=== PATIENT | female | born 1975 | race Caucasian/White ===

== ENCOUNTER 2020-01-12 11:46 | Outpatient (CLI) | payer OTHER, SELFPAY ==
--- NOTE | ~2020-01-12 | MM_ITS ---
EXAMINATION: MM diagnostic delma LT w eric HISTORY: Six-month follow-up for probably benign left breast masses TECHNIQUE: Craniocaudal, mediolateral, and mediolateral oblique 3-D tomosynthesis images of the left breast were performed and synthetic 2-D images were generated. And spot compression views are also ob tained. CAD analysis was submitted and interpreted. COMPARISON: 06/29/2019, 06/23/2019, 05/27/2018, 05/19/2017 BREAST PARENCHYMAL COMPOSITION: There are scattered areas of fibroglandular density. FINDINGS: There is a stable 5 mm mass in the middle third of the slightly lower, slightly outer breas t at the 4:00 location 7 cm from the nipple. No suspicious calcification or architectural distortion are identified. There has been no suspicious interval change. Sonographically detected masses on the 06/29/2019 comparison or similar appearance, most consistent with multiple simple and complicated cyst s. IMPRESSION: 1. Stable, probably benign left breast mass. 2. Recommend 6 month follow-up left diagnostic mammogram with possible ultrasound BI-RADS category 3, probably benign findings. Reviewed, dictated and finalized at location A. IMPRESSION: 1. Stable, probably benign left breast mass. 2. Recommend 6 month follow-up left diagnostic mammogram with possible ultrasou nd BI-RADS category 3, probably benign findings.
== END 2020-01-12 11:47 | disposition home or self-care (01) ==
LOC: ANHIMG 11:48
PROVIDERS: PCP Family Medicine; Visit Provider Obstetrics & Gynecology
DX: R92.8 Other abnormal and inconclusive findings on diagnostic imaging of breast (principal)
CPT/HCPCS: 77061; 77065; G0279

== ENCOUNTER 2020-04-16 09:46 | Day surgery (SDC) | payer OTHER, SELFPAY ==
[2020-04-16] VITALS (11 sets, daily range): BP systolic 99–134; BP diastolic 50–94; PULSE 57–101; RESP 11–20; TEMP 36.3–37; O2SAT 96–100
--- NOTE | ~2020-04-16 | US_ITS ---
EXAMINATION: US right upper quadrant EXAM DATE: 04/16/2020 11:04 INDICATION: Right upper quadrant pain. TECHNIQUE: Multiple grayscale and Doppler images of the abdomen right upper quadrant were obtained (kareen y a technologist who performed the scan) and subsequently reviewed. There is no prior study for narendra hightower. FINDINGS: The pancreatic head and body are normal in appearance. The pancreatic tail is not visualized. The l iver has normal echogenicity and contour. There are no focal liver lesions identified. There is no evidence of intrahepatic biliary duct dilation. Portal venous flow was seen in the hepatopedal, nor mal direction and has normal Doppler waveform. No right-sided hydronephrosis. Common bile duct measures 6 mm, which is normal. There are multiple small gallstones identified in th e fundus and also a stone in the gallbladder neck. Gallbladder is moderately distended with regions t hat are mildly thickened. Additionally, a sonographic Bergeron's sign was demonstrated. Common bile kasi t measures 6 mm which is upper limits of normal. No pericholecystic fluid. IMPRESSION: Findings suspicious for acute cholecystitis. Please clinically correlate. Reviewed, dictated and finalized at location A. IMPRESSION: Findings suspicious for acute cholecystitis. Please clinically germaine elate.
--- NOTE | 2020-04-16 10:02 | ECG_ITS ---
Measurements Intervals [place] Rate: 75 P: 78 NC: 154 QRS: 60 QRSD: 88 T: 46 QT: 371 QTc: 415 Interpretive Statements SINUS RHYTHM POSSIBLE LEFT ATRIAL ENLARGEMENT BORDERLINE ST ABNORMALITY- INF/LAT LEADS BORDERLINE ECG Electronically Signed On 04-16-2020 11:43:07 CDT by Adam Fernandez D.O.
--- NOTE | 2020-04-16 10:02 | ED.ABDPAIN ---
HPI - Abdominal Pain General Chief Complaint: Abdominal Pain Stated Complaint: abd pain Time Seen by Provider: 04/16/20 09:50 Source: patient Mode of arrival: ambulatory History of Present Illness HPI narrative: This patient is a 44 year old female who presents for evaluation of possible gallbladder problem. She developed upper abdominal pain /pressure Thursday after eating a hamburger. She had nausea and vomiting at the time of this pain and she reports she felt better. She has continued to have intermittent gas pressure pain since Thursday. This pain is worse with standing. She denies fever, chills , cough or chest pain. MD elicited complaint: abdominal pain Onset (ago): day(s) (3) Pain Consistency: intermittent Location: RUQ Related Data Allergies Allergy/AdvReac Type Severity Reaction Status Date / Time erythromycin base Allergy Intermediate Rash Unverified 09/17/12 19:23 penicillin G AdvReac Mild Causes Verified 09/17/12 19:23 yeast infections Penicillins AdvReac YEAST Unverified 04/16/20 14:29 INFECTION MACROLIDES Allergy Mild Uncoded 01/10/09 13:01 Review of Systems Review of Systems: All systems reviewed & are unremarkable except as noted in HPI and below Constitutional: Constitutional: Denies chills and Denies fever(s) Cardiovascular: Cardiovascular: Denies chest pain Respiratory: Respiratory: Denies cough and Denies dyspnea Gastrointestinal: Gastrointestinal: Reports abdominal pain, Reports nausea and Reports vomiting Genitourinary: Genitourinary: Reports no additional female genitourinary complaints Musculoskeletal: Musculoskeletal: Reports back pain PMFSH Past Medical History Medical History (Updated 04/16/20 @ 18:22 by Soheila Tyson MD) No significant past medical history Surgical History Surgical History (Updated 04/16/20 @ 17:33 by Riddhi Alcocer) History of section History of left salpingo-oophorectomy Laparoscopic left salpingo-oophorectomy due to ovarian cyst about 11-12 years ago. Family History Family History (Updated 08/06/18 @ 14:24 by DOCTOR UNKNOWN) Father Hypertension Mother Hypertension Other Family history of attention deficit hyperactivity disorder (ADHD) Social History Social History Social History: Patient lives at home with her son. She works at [employer]. Wishes to be a full code. Designates her mother, Moira Rios, as her medical decision maker. Smoking packs per day: 1 Smoking cigarettes per day: 20.0 Years smoked: 10 Smoking pack-years: 10.00 Smoking status: Current every day smoker Tobacco type: cigarettes Alcohol intake: never Substance use: never Living arrangements: with family Additional living arrangements comments: Lives with one of her sons. Occupation/Education: occupation Additional occupation/education comments: Works at [employer]. Gender identity (if verbalized by the patient): Female Exam Narrative: Exam Narrative: GENERAL: Well-appearing, well-nourished, and in no acute distress. HEAD: Normocephalic, atraumatic EYES: PERRLA and EOMI, conjunctiva clear without discharge THROAT:Mucous membranes moist, NECK: Supple, without lymphadenopathy or mass RESPIRATORY: No respiratory distress, Airway patent, Respirations non-labored, Clear to auscultation without rales, rhonchi or wheeze HEART: Regular rate and rhythm. No murmur heard. Normal peripheral pulses. ABDOMEN: Soft, RUQ, epigastric tenderness, nondistended, normal active bowel sounds. No masses. No rebound or guarding, No organomegaly. EXTREMITIES: No edema, normal strength with full range of motion. SKIN: Warm, dry, normal color without rash NEURO: Alert and oriented x3. CN 2-12 grossly intact. No focal deficits. PSYCH: Normal mood and affect. Course Consultations Consultation #1: Dr. De Leon states he will try to take patient to OR today. She should remain NPO Date: 04/16/20
--- NOTE | 2020-04-16 10:10 | PC.NURSE ---
pt taken to ultrasound at this time, unable to obtain EKG prior to depature, will obtain upon return.
[2020-04-16 10:20] LABS: Basophils Percent Auto 0.3 % (0.2-1.2); Eosinophils Absolute Auto 0.1 K/mm3 (0-0.3); Eosinophils Percent Auto 0.8 % (0-4.4); Hematocrit 41.1 % (37.0-47.0); Hemoglobin 13.7 g/dL (12.0-15.0); Immature Granulocyte Absolute 0.05 K/mm3 (0.00-0.031); Immature Granulocyte Percent A 0.5 % (0-0.5); Lymphocytes Absolute Auto 2.38 K/mm3 (0.9-3.2); Lymphocytes Percent Auto 22.4 % (18.3-44.2); Mean Corpuscular HGB Conc 33.3 g/dl (32-36); Mean Corpuscular Hemoglobin 29.8 pg (26-34); Mean Corpuscular Volume 89.3 fl (80-100); Mean Platelet Volume 10.3 fl (7.4-10.4); Monocytes Absolute Auto 0.7 K/mm3 (0.1-0.6); Neutrophils Absolute Auto 7.3 K/mm3 (1.3-6.7); Platelet Count Result 322 k/mm3 (150-375); Red Cell Distribution Width 13.1 % (11.5-14.5); White Blood Count 10.6 K/mm3 (4.5-10.0)
[2020-04-16 10:27] LABS: Add Urine Microscopic? YES; Appearance Urine Clear (Clear); Bacteria Urine Trace /hpf; Bilirubin Urine Negative (Negative); Blood Urine 1+ (Negative); Color Urine Straw (Yellow); Glucose Urine UA Negative (Negative); Ketones Urine 1+ mg/dL (Negative); Leukocyte Esterase Ur Trace LEU/UL (Negative); Mucus Urine Rare /lpf; Nitrate Urine Negative (Negative); Protein Urine Negative (Negative); RBC Urine 0-2 /hpf (0-2); Specific Grav Ur 1.005 (1.001-1.035); Squamous Epithelial Cell Urine Few /hpf (Few); Urobilinogen Urine Negative mg/dL (<2.0); WBC Urine 0-3 /hpf
[2020-04-16 10:31] LABS: Alanine Aminotransferase 12 U/L (4-35); Albumin Level 4.4 g/dL (3.5-5.1); Alkaline Phosphatase 73 U/L (38-126); Aspartate Amino Transferase 16 U/L (14-36); Bilirubin,Total 0.4 mg/dL (0.2-1.3); Blood Urea Nitrogen 7 mg/dL (7-17); Calcium 9.3 mg/dL (8.4-10.2); Carbon Dioxide 25 mmol/L (22-30); Chloride 102 mmol/L (98-107); Estimated CRCL calculation 127 ml/min; Estimated Glomerular Filt Rate > 60; Glucose 102 mg/dL (65-105); Lipase 20 U/L (23-300); Potassium 3.3 mmol/L (3.4-5.0); Sodium 138 mmol/L (137-145)
--- NOTE | 2020-04-16 10:31 | PC.NURSE ---
PT STILL IN ULTRASOUND, WILL OBTAIN EKG UPON RETURN.
--- NOTE | 2020-04-16 10:46 | PC.NURSE ---
PT STILL IN ULTRASOUND, WILL OBTAIN EKG UPON RETURN AND MEDICATE PER PROVIDER ORDER.
--- NOTE | 2020-04-16 11:08 | PC.NURSE ---
PT HAS RETURNED FROM ULTRASOUND AT THIS TIME.
[2020-04-16] MEDS: LACTATED RINGERS 1,000 ML 999 ML IV CONT (11:12)
[2020-04-16] MEDS: PANTOPRAZOLE SODIUM IV 40 MG VIAL IV PUSH (11:12)
--- NOTE | 2020-04-16 11:18 | PC.NURSE ---
PT REFUSING ZOFRAN ON THE BASIS THAT SHE IS NOT NAUSEATED AT THIS TIME AND IT MAKES HER VERY SLEEPY AND SHE HAS TO DRIVE HOME.
--- NOTE | 2020-04-16 12:49 | WPDANESEPPF ---
Anes - Initial Pre Proc Eval Procedure: Operation Date: 04/16/20 16:30 Proposed Procedures p Laparoscopic Cholecystectomy,Possible Open - Dakotah Sevilla DO Date/Time: 04/16/20 12:49 Pre Op Diagnosis: acute calculous cholecystitis Patient Data Age: 44 Gender: F Height: 1.65 m Weight: 80.7 kg Last Vital Signs Temp 36.6 C 04/16/20 10:00 Pulse 57 L 04/16/20 11:40 Resp 18 04/16/20 11:40 BP 118/63 04/16/20 11:40 Pulse Ox 100 04/16/20 11:40 Allergies Allergy/AdvReac Type Severity Reaction Status Date / Time erythromycin base Allergy Intermediate Rash Unverified 09/17/12 19:23 penicillin G AdvReac Mild Causes Verified 09/17/12 19:23 yeast infections Penicillins AdvReac YEAST Unverified 04/16/20 14:29 INFECTION MACROLIDES Allergy Mild Uncoded 01/10/09 13:01 Home Medications Medication Instructions Recorded Confirmed Type hydrocodone-acetaminophen [[place]] 1 tablet PO Q4H PRN #10 tablet 04/16/20 Rx Laboratory Tests 04/16/20 04/16/20 04/16/20 10:10 10:10 10:11 WBC 10.6 K/mm3 H K/mm3 (4.5-10.0) RBC 4.60 M/mm3 M/mm3 (4.2-5.4) Hgb 13.7 g/dL g/dL (12.0-15.0) Hct 41.1 % % (37.0-47.0) MCV 89.3 fl fl (80-100) MCH 29.8 pg pg (26-34) MCHC 33.3 g/dl g/dl (32-36) RDW 13.1 % % (11.5-14.5) Plt Count 322 k/mm3 k/mm3 (150-375) MPV 10.3 fl fl (7.4-10.4) Immature Gran % (Auto) 0.5 % % (0-0.5) Neut % (Auto) 69.0 % % (45.5-73.1) Lymph % (Auto) 22.4 % % (18.3-44.2) [place] % (Auto) 7.0 % % (2.6-8.5) Eos % (Auto) 0.8 % % (0-4.4) Baso % (Auto) 0.3 % % (0.2-1.2) Lymph # (Auto) 2.38 K/mm3 K/mm3 (0.9-3.2) [place] # (Auto) 0.7 K/mm3 H K/mm3 (0.1-0.6) Eos # (Auto) 0.1 K/mm3 K/mm3 (0-0.3) Baso # (Auto) 0.0 K/mm3 K/mm3 (0.0-0.1) Abs Immat Gran (auto) 0.05 K/mm3 H K/mm3 (0.00-0.031) Absolute Neuts (auto) 7.3 K/mm3 H K/mm3 (1.3-6.7) Absolute Nucleated RBC 0.0 K/mm3 K/mm3 (0.0-0.012) Nucleated RBC % 0.0 % % (0.0-0.2) Sodium 138 mmol/L mmol/L (137-145) Potassium 3.3 mmol/L L mmol/L (3.4-5.0) Chloride 102 mmol/L mmol/L (98-107) Carbon Dioxide 25 mmol/L mmol/L (22-30) BUN 7 mg/dL mg/dL (7-17) Creatinine 0.50 mg/dL L mg/dL (0.7-1.0) Estim Creat Clear Calc 127 ml/min ml/min Estimated GFR > 60 (59 - ) Glucose 102 mg/dL mg/dL (65-105) Calcium 9.3 mg/dL mg/dL (8.4-10.2) Total Bilirubin 0.4 mg/dL mg/dL (0.2-1.3) AST 16 U/L U/L (14-36) ALT 12 U/L U/L (4-35) Alkaline Phosphatase 73 U/L U/L (38-126) Total Protein 7.0 g/dL g/dL (6.3-8.2) Albumin 4.4 g/dL g/dL (3.5-5.1) Lipase 20 U/L L U/L (23-300) Urine Color Straw (Yellow) Urine Appearance Clear (Clear) Urine pH 8.0 (5.0-9.0) Ur Specific [place] 1.005 (1.001-1.035) Urine Protein Negative mg/dL mg/dL (Negative) Urine Glucose (UA) Negative mg/dL mg/dL (Negative) Urine Ketones 1+ mg/dL H mg/dL (Negative) Ur Blood (Man) 1+ H (Negative) Urine Nitrate Negative (Negative) Urine Bilirubin Negative (Negative) Urine Urobilinogen Negative mg/dL mg/dL (<2.0) Leukocyte Esterase Rfl Trace SANTO/UL H SANTO/UL (Negative) Urine RBC 0-2 /hpf /hpf (0-2) Urine WBC 0-3 /hpf /hpf Ur Squamous Epith Cells Few /hpf /hpf (Few) Urine Bacteria Trace /hpf /hpf Urine Mucus Rare /lpf /lpf Other Studies: Upper Quadrant Ultrasound 04/16/20 11:06 IMPRESSION: Findings suspicious for acute cholecystitis. Please clinica
--- NOTE | 2020-04-16 12:58 | PM.IMHP ---
H&P: HPI History of Present Illness Chief complaint: abd pain Narrative: Neisha Black is a 44 year old female with no known past medical history, who presented to the emergency department with complaints of epigastric abdominal pain. The patient reports 1st noticing symptoms about 2-3 hours after eating a cheeseburger from [employer] 2 days ago. Initially, she thought this was related to indigestion and had taken multiple pgzs-zle-sukykeg medications to relieve her symptoms. She reportedly took Maalox and Gas-X without relief. She reports initially it was a mild pressure type of pain in the epigastric area. That night she vomited once and felt that this relieved her abdominal pain. Through the next day, the abdominal pain returned and continued to worsen. She reportedly did not eat anything but crackers yesterday and states her abdominal pain became severe. The pain would come in waves. Due to the persistent pain, the patient presented to the emergency department for further evaluation. Right upper quadrant ultrasound showed findings suspicious for acute cholecystitis, with multiple small gallstones identified in the fundus and also a stone in the gallbladder neck with moderate gallbladder distention and areas of mild wall thickness. Labs revealed white blood cell count of 10,600, normal LFTs, and normal lipase. The ED physician contacted our service and the patient is now being seen in the emergency department for evaluation for acute cholecystitis. She reports that her abdominal pain is improved since being in the ER after receiving pain medication, but has had two episodes of severe abdominal pain that came in waves since she has been there. Denies any current nausea or bloating. Denies having this pain in the past. Recently constipated with no bowel movement in the past 2-3 days. No other complaints at this time. Also to note, the patient was tested for SARS CoV-2 due to work on 02/28/2020 and tested positive. She was reportedly quarantine for 10 days and was having symptoms of loss of taste and smell. No longer experiencing any symptoms and back to work. Review of Systems Constitutional: Constitutional: Reports no additional constitutional complaints, Denies chills, Denies excessive sweating, Denies fatigue, Denies fever(s), Denies headache(s) and Denies weakness Eyes: Eyes: Denies change in vision and Denies loss of vision ENT: Reports Normal hearing present, Denies dizziness and Denies headache(s) Cardiovascular: Cardiovascular: Denies chest pain, Denies syncope, Denies leg edema, Denies lightheadedness, Denies radiating jaw, neck or arm pain and Denies dyspnea Respiratory: Respiratory: Denies cough, Denies dyspnea and Denies wheezing Gastrointestinal: Gastrointestinal: Reports as per HPI, Reports abdominal pain (epigastric), Denies bloating, Denies hematochezia, Denies tenesmus, Reports constipation, Denies diarrhea, Denies nausea, Reports vomiting and Denies hematemesis Genitourinary: Genitourinary: Reports no additional female genitourinary complaints, Denies hematuria and Denies dysuria Musculoskeletal: Musculoskeletal: Denies deformity, Denies joint swelling, Denies radiating pain into limb and Denies tingling Integumentary/Breasts: Skin/Breast: Denies pruritus, Denies wounds and Denies jaundice Neurologic: Reports Normal hearing present, Denies confusion, Denies dizziness, Denies syncope, Denies headache(s), Denies loss of vision, Denies tingling, Denies tremor(s) and Denies weakness Psychiatric: Psychiatric: Denies anxiety, Denies confusion and Denies depression Endocrine: Endocrine: Denies cold intolerance, Denies excessive sweating, Denies fatigue and Denies heat intolerance Allergic/Immunologic: Allergic/Immunologic: Denies wheezing PMFSH Past Medical History Medical History No significant past medical history Surgical History Surgical History (Reviewed
--- NOTE | 2020-04-16 13:13 | PC.NURSE ---
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
[2020-04-16] MEDS: LACTATED RINGERS 1,000 ML 30 ML IV CONT ×2 (14:15→16:10)
[2020-04-16] MEDS: KETOROLAC 15 MG/ML VIAL (*BKC) IV PUSH ×2 (14:40→16:49)
[2020-04-16] MEDS: ceFAZolin 2 GM/D5W 50 ML 2 GM/50 ML BAG IVPB (15:07)
[2020-04-16] MEDS: BUPIVACAINE/EPINEPHRINE 0.5% 30 ML VIAL INFILTRATE (15:55)
--- NOTE | 2020-04-16 16:09 | PM.PROC ---
Procedure Note - Detailed Date of procedure: 04/16/20 Pre-op diagnosis: acute calculous cholecystitis Post-op diagnosis: same (Acute calculous cholecystitis with gallbladder hydrops) Procedure performed: Laparoscopic Cholecystectomy Description of procedure: Procedure as well as risks, benefits, and alternatives were discussed with patient. Written consent was obtained and placed in chart prior to procedure. The patient was brought back to surgical suite. Patient was placed in supine position on operating table. Time-out was done to confirm patient and procedure. Patient was then intubated by the anesthesia department. Abdomen was prepped and draped in sterile fashion using chlorhexidine prep. 0.5% bupivacaine with epinephrine was infiltrated at each site of incision. A 5 millimeter incision was made near the umbilicus, and a 5 millimeter Optiview trocar was advanced through the abdominal layers under direct visualization. Once inside the abdominal cavity, carbon dioxide was insufflated to create a pneumoperitoneum. The camera was inserted and the abdomen was inspected. No immediate abnormalities were identified. The patient was placed in reverse Trendelenburg position and rotated slightly to the left. An 11 millimeter incision was made in the subxiphoid region, and an 11 millimeter trocar was inserted under direct visualization. Two 5 millimeter incisions were made in the right upper quadrant, and two 5 millimeter trocars were inserted under direct visualization. The gallbladder was identified and grasped at the fundus and retracted superiorly. It was then grasped at the infundibulum retracted laterally. Careful dissection around the neck of the gallbladder was performed using blunt dissection with a [place] grasper and hook electrocautery. The cystic duct was identified, and a window was created behind it. The cystic artery was also identified and a window was created behind it. The critical view of safety was identified, visualizing the cystic duct running directly into the neck of the gallbladder, and the cystic artery running directly into the wall of the gallbladder. A 5 millimeter clip safety director was then used to place 2 clips proximally and 1 clip distally on both the cystic duct and cystic artery. They were then both transected using endoscopic scissors. Once safely away from the lavelle hepatitis, the gallbladder was dissected free from the liver bed using hook electrocautery. Hemostasis was achieved along the way. The gallbladder was removed completely and then removed through the subxiphoid port. The liver bed was then inspected. Hemostasis appeared adequate, and our clips appeared secure. The area was gently irrigated with sterile saline. No other abnormalities were seen. The patient was flattened out in bed, and 1 final inspection was made around the abdominal cavity. The ports were then removed under direct visualization, the camera was removed, and the pneumoperitoneum was released. The fascia of the subxiphoid port was approximated using an 0 Vicryl [id number] suture. The skin of the incisions was approximated using 4-0 Monocryl subcuticular sutures. Exofin glue was applied on top. The patient was then awakened from anesthesia, extubated, and transferred to recovery. Anesthesia: GETA and local (0.5% bupivicaine with epi) Surgeon: Dakotah Sevilla DO Estimated blood loss (mL): 20 Drains: No Packing: No Pathology: yes Complications: No immediate complications Condition: stable (Patient tolerated procedure well, and is currently resting comfortably in recovery.) Disposition: same day Findings: This is a 44-year-old woman who presented to the emergency department today with complaints of right upper quadrant abdominal pain for the past 2 days. She states that the pain started shortly after eating a cheeseburger. She has never experienced pains like this in the past. Pain was continued to worsen and therefore she decided to p
--- NOTE | 2020-04-16 17:14 | SUR.PHASEI ---
[id number] - dr. mcgee at bedside
== END 2020-04-16 18:09 | disposition home or self-care (01) ==
LOC: ANHED 12:00 → ANHSURGERY 13:18
PROVIDERS: Emergency Provider General Practice; PCP Family Medicine; Visit Provider Surgery
PROC: 0FT44ZZ Resection of Gallbladder, Percutaneous Endoscopic Approach (ICD-10-PCS; CPT 47562; principal; 2020-04-16 16:30)
DX: K80.10 Calculus of gallbladder with chronic cholecystitis without obstruction (principal); F17.210 Nicotine dependence, cigarettes, uncomplicated
CPT/HCPCS: 47562; 36415; 76705; 80053; 81001; 81025; 83690; 85025; 86850; 86900; 86901; 88304; 93005; 96361; 96365; 96375; 99285; C9113; J0131; J0330; J0690; J1100; J1885; J2250; J2405; J2704; J2710; J3010; J7120

== ENCOUNTER 2020-08-07 11:43 | Outpatient (CLI) | payer OTHER, SELFPAY ==
--- NOTE | ~2020-08-07 | MM_ITS ---
EXAMINATION: MM diagnostic [place]ma LT w eric HISTORY: Six-month follow-up for probably benign left breast mass TECHNIQUE: Craniocaudal, mediolateral, and mediolateral oblique 3-D tomosynthesis images of the left breast were performed and synthetic 2-D images were generated. Spot compression views are also obtain ed. CAD analysis was submitted and interpreted. COMPARISON: 01/12/2020, 06/29/2019, 06/23/2019, 05/27/2018 BREAST PARENCHYMAL COMPOSITION: There are scattered areas of fibroglandular density. FINDINGS: Again seen is a stable 5 mm mass in the middle third of the slightly lower, slightly outer breast at the 4:00 location 7 cm from the nipple. No suspicious calcification or architectural distor tion are identified. IMPRESSION: 1. Stable, probably benign left breast mass. 2. Given one year of interval stability, recommend 12 month followup left diagnostic mammogram with p ossible ultrasound is recommended. BI-RADS category 3, probably benign findings. Reviewed, dictated and finalized at location A. 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 Stable, probably benign left breast mass. 2. Given one year of interval stability, recommend 12 month followup left diagn ostic mammogram with possible ultrasound is recommended. BI-RADS category 3, probably benign findings.
== END 2020-08-07 11:44 | disposition home or self-care (01) ==
LOC: ANHIMG 11:47
PROVIDERS: PCP Family Medicine; Visit Provider Obstetrics & Gynecology
DX: R92.8 Other abnormal and inconclusive findings on diagnostic imaging of breast (principal)
CPT/HCPCS: 77061; 77065; G0279

== ENCOUNTER 2020-08-14 15:47 | Outpatient (CLI) | payer OTHER, SELFPAY ==
--- NOTE | ~2020-08-14 | MM_ITS ---
EXAMINATION: MM screening delma RT w eric HISTORY: Screening right mammogram, recent left diagnostic mammogram TECHNIQUE: Craniocaudal and mediolateral oblique 3-D tomosynthesis images were obtained and synthetic 2-D images were generated. CAD analysis was submitted and interpreted. COMPARISON: 06/23/2019, 05/27/2018, 05/19/2017 BREAST PARENCHYMAL COMPOSITION: There are scattered areas of fibroglandular density. FINDINGS: A stable asymmetry is seen in the outer breast on the craniocaudal view. There is no eviden ce of suspicious mass, calcification, or architectural distortion to suggest malignancy in either yomaira ast. There has been no suspicious interval change. IMPRESSION: 1. No mammographic evidence of malignancy. 2. Recommend routine screening mammography in one year. BI-RADS Category 2: Benign finding(s). Reviewed, dictated and finalized at location A. 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
== END 2020-08-14 15:48 | disposition home or self-care (01) ==
LOC: ANHIMG 15:48
PROVIDERS: PCP Family Medicine; Visit Provider Obstetrics & Gynecology
DX: Z12.31 Encounter for screening mammogram for malignant neoplasm of breast (principal)
CPT/HCPCS: 77063; 77067

== ENCOUNTER 2022-02-17 15:08 | Outpatient (CLI) | payer OTHER, SELFPAY ==
--- NOTE | ~2022-02-17 | MM_ITS ---
EXAMINATION: MM screening [facility] BI w eric HISTORY: Screening mammogram TECHNIQUE: Craniocaudal and mediolateral oblique 3-D tomosynthesis images were obtained and synthetic 2-D images were generated. CAD analysis was submitted and interpreted. COMPARISON: Serial mammogram and ultrasound images dating back to 05/27/2018. BREAST PARENCHYMAL COMPOSITION: There are scattered areas of fibroglandular density. FINDINGS: Right breast: There is no evidence of suspicious mass, calcification, or architectural distortion to suggest malignancy in either breast. There has been no suspicious interval change. Left breast: There is interval increased density in the upper outer left breast. Diagnostic left mamm ogram is recommended, with ultrasound if required. IMPRESSION: 1. Interval increased density in upper outer left breast 2. Diagnostic left mammogram is recommended, with ultrasound if required BI-RADS Category 0: Incomplete: Needs additional imaging evaluation. Reviewed, dictated and finalized at location A.
== END 2022-02-17 15:09 | disposition home or self-care (01) ==
LOC: ANHIMG 15:11
PROVIDERS: PCP Family Medicine; Visit Provider Obstetrics & Gynecology
DX: Z12.31 Encounter for screening mammogram for malignant neoplasm of breast (principal); R92.8 Other abnormal and inconclusive findings on diagnostic imaging of breast
CPT/HCPCS: 77063; 77067

== ENCOUNTER 2022-03-04 11:08 | Outpatient (CLI) | payer OTHER, SELFPAY ==
--- NOTE | ~2022-03-04 | MMUS_ITS ---
EXAMINATION: MM diagnostic delma LT w eric, US breast LT limited HISTORY: Possible left breast mass on screening mammogram TECHNIQUE: Additional 3-D tomosynthesis images of the left breast were performed and synthetic 2-D im ages were generated. CAD analysis was submitted and interpreted. High resolution limited left breast ultrasound was performed. COMPARISON: 02/17/2022, 08/14/2020, 08/07/2020, 01/12/2020 BREAST PARENCHYMAL COMPOSITION: There are scattered areas of fibroglandular density. FINDINGS: MAMMOGRAPHIC FINDINGS: There is a 9 mm oval, obscured, equal density mass in the anterior third outer breast at the 12:00 lo cation 3 cm from the nipple. ULTRASOUND: There is a 9 mm cyst at the 12:00 location 2 cm from the nipple corresponding to the mammographic fin ding in question. Multiple smaller cysts are present in the upper outer quadrant of the right breast. IMPRESSION: 1. No mammographic or sonographic evidence of malignancy. 2. Recommend routine screening mammography in one year. BI-RADS Category 2: Benign finding(s). Reviewed, dictated and finalized at location A. IMPRESSION: 1. No mammographic or sonographic evidence of malignancy. 2. Recommend routine screening mammography in one year. BI-RADS Category 2: Benign finding(s).
== END 2022-03-04 11:09 | disposition home or self-care (01) ==
PROVIDERS: PCP Family Medicine; Visit Provider Obstetrics & Gynecology
DX: R92.8 Other abnormal and inconclusive findings on diagnostic imaging of breast (principal)
CPT/HCPCS: 76642; 77061; 77065; G0279

== ENCOUNTER 2023-04-29 11:30 | Outpatient (CLI) | payer OTHER, SELFPAY ==
--- NOTE | ~2023-04-29 | MM_ITS ---
EXAMINATION: MM screening [facility] w [facility] HISTORY: Screening mammogram TECHNIQUE: Craniocaudal and mediolateral oblique 3-D tomosynthesis images were obtained and synthetic 2-D images were generated. CAD analysis was submitted and interpreted. COMPARISON: 03/04/2022 diagnostic left mammogram and limited left breast ultrasound examination 02/17/2022 bilateral screening mammogram 08/14/2020 right screening mammogram examinations 08/07/2020 diagnostic left mammogram BREAST PARENCHYMAL COMPOSITION: There are scattered areas of fibroglandular density. FINDINGS: There is no evidence of suspicious mass, calcification, or architectural distortion to sugg est malignancy in either breast. There has been no suspicious interval change. IMPRESSION: 1. No mammographic evidence of malignancy. 2. Recommend routine screening mammography in one year. BI-RADS Category 1: Negative Reviewed, dictated and finalized at location A.
== END 2023-04-29 11:31 | disposition home or self-care (01) ==
LOC: ANHIMG 11:33
PROVIDERS: PCP Family Medicine; Visit Provider Obstetrics & Gynecology
DX: Z12.31 Encounter for screening mammogram for malignant neoplasm of breast (principal)
CPT/HCPCS: 77063; 77067

== ENCOUNTER 2024-09-12 13:58 | Outpatient (CLI) | payer OTHER, SELFPAY ==
--- NOTE | ~2024-09-12 | MM_ITS ---
EXAMINATION: MM screening [facility] HISTORY: Screening TECHNIQUE: Craniocaudal and mediolateral oblique 3-D tomosynthesis images were obtained and synthetic 2-D images were generated. CAD analysis was submitted and interpreted. COMPARISON: Comparison to multiple prior studies sequentially, with oldest reviewed study dated 01/11. BREAST PARENCHYMAL COMPOSITION: Not dense: There are scattered areas of fibroglandular density. FINDINGS: There are developing obscured masses in the right breast. The left breast is stable without evidence for malignancy. IMPRESSION: 1. Developing subtle low density masses of the right breast obscured by dense fibroglandular tissue. 2. Additional mammographic views and possible breast ultrasound are recommended. BI-RADS Category 0: Incomplete: Needs additional imaging evaluation. Reviewed, dictated and finalized at location B. NTEER COORDINATOR IMPRESSION: 1. Developing subtle low density masses of the right breast obscured by dense f ibroglandular tissue. 2. Additional mammographic views and possible breast ultrasound are recommended . BI-RADS Category 0: Incomplete: Needs additional imaging evaluation.
== END 2024-09-12 13:59 | disposition home or self-care (01) ==
PROVIDERS: Visit Provider Obstetrics & Gynecology
DX: Z12.31 Encounter for screening mammogram for malignant neoplasm of breast (principal); R92.8 Other abnormal and inconclusive findings on diagnostic imaging of breast
CPT/HCPCS: 77063; 77067

== ENCOUNTER 2024-10-05 12:53 | Outpatient (CLI) | payer OTHER, SELFPAY ==
--- NOTE | ~2024-10-05 | MMUS_ITS ---
EXAMINATION: MM diagnostic [facility] RT w eric, US breast RT complete HISTORY: Follow-up right breast asymmetries TECHNIQUE: Additional 3-D tomosynthesis images of the right breast were performed and synthetic 2-D i mages were generated. CAD analysis was submitted and interpreted. High resolution complete right eboni st ultrasound was performed. COMPARISON: Comparison to multiple prior studies sequentially, with oldest reviewed study dated 07/29. BREAST PARENCHYMAL COMPOSITION: Not dense: There are scattered areas of fibroglandular density. FINDINGS: MAMMOGRAPHIC FINDINGS: There are scattered nodular asymmetries which are obscured by fibroglandular tissue, seen on one view only. No architectural distortion or abnormal cluster of calcifications. ULTRASOUND: Complete US of all 4 quadrants of the right breast/s and retroareolar region was reviewed. At 1:00, 3 cm from the nipple there is a 4 mm cyst. At 2:00, 2 cm from the nipple there is 5 mm cyst. At 3:00, 3 cm from the nipple there is a lipoma measuring 1.5 x 1 x 0.6 cm. At 9:00, 3 cm from the nipple ther e is a 5 mm cyst. At 10:00, 4 cm from the nipple there is an oval hypoechoic mass with internal cysti c changes and septations, likely a cluster of benign microcysts. IMPRESSION: 1. Probable benign mass of the right breast at 10:00, 4 cm from the nipple. Otherwise, no evidence fo r malignancy. 2. Recommend 6 month follow-up Limited right breast ultrasound BI-RADS category 3, probably benign findings. Reviewed, dictated and finalized at location B. PHONER IMPRESSION: 1. Probable benign mass of the right breast at 10:00, 4 cm from the nipple. Oth erwise, no evidence for malignancy. 2. Recommend 6 month follow-up Limited right breast ultrasound BI-RADS category 3, probably benign findings.
== END 2024-10-05 12:54 | disposition home or self-care (01) ==
LOC: ANHIMG 12:55
PROVIDERS: Visit Provider Obstetrics & Gynecology
DX: R92.8 Other abnormal and inconclusive findings on diagnostic imaging of breast (principal)
CPT/HCPCS: 76641; 77061; 77065; G0279

== ENCOUNTER 2025-06-05 13:36 | Outpatient (CLI) | payer OTHER, SELFPAY ==
--- NOTE | ~2025-06-05 | US_ITS ---
EXAMINATION: US breast RT limited INDICATION: 49-year old female; BI-RADS 3, evaluate probably benign right breast mass. COMPARISON: 10/05/2024 TECHNIQUE: Targeted sonographic evaluation of the probably benign mass in the upper outer, 10:00 in the right breast was completed. FINDINGS: A 0.7 x 0.7 x 0.4 cm cluster of cysts at 10:00 location 4 cm from the nipple in the RIGHT breast reidentified is unchanged. IMPRESSION: Probably benign right breast mass have not significantly changed. RECOMMENDATION: Continue imaging surveillance with bilateral diagnostic mammography and right breast ultrasound in 6 months. BI-RADS 3, PROBABLY BENIGN Reviewed, dictated and finalized at location B. IMPRESSION: Probably benign right breast mass have not significantly changed. RECOMMENDATION: Continue imaging surveillance with bilateral diagnostic mammography and right b reast ultrasound in 6 months. BI-RADS 3, PROBABLY BENIGN
== END 2025-06-05 13:37 | disposition home or self-care (01) ==
PROVIDERS: Visit Provider Obstetrics & Gynecology
DX: R92.8 Other abnormal and inconclusive findings on diagnostic imaging of breast (principal)
CPT/HCPCS: 76642